=== PATIENT | female | born 1970 | race Caucasian/White ===

== ENCOUNTER 2017-08-15 14:01 | Observation (INO) | payer SELFPAY ==
[~2017-08-15] VITALS: Ht 167.6 cm; Wt 68.0 kg
--- NOTE | 2017-08-15 14:13 | NUR ---
CALLED PT FROM LOBBY PT NOT PRESENT.
--- NOTE | 2017-08-15 14:25 | NUR ---
PT TO ROOM 8 W/STEADY GAIT.
--- NOTE | 2017-08-15 14:26 | NUR ---
PT NOW STATES THAT SHE IS HAVING PAIN IN HER CHEST WELL.
[2017-08-15 15:13] LABS: URINE BILIRUBIN - DIPSTICK NEGATIVE (NEGATIVE); URINE BLOOD DIPSTICK NEGATIVE (NEGATIVE); URINE COLOR YELLOW; URINE GLUCOSE - DIPSTICK NEGATIVE (NEGATIVE); URINE KETONE NEGATIVE (NEGATIVE); URINE LEUK ESTERASE NEGATIVE (NEGATIVE); URINE NITRITE - DIPSTICK NEGATIVE (Negative); URINE PROTEIN - DIPSTICK NEGATIVE (NEG-TRACE); URINE UROBILINOGEN - DIPSTICK 0.2 E.U./dL (0.2)
[2017-08-15 15:16] LABS: URINE CLARITY CLEAR
--- NOTE | 2017-08-15 15:20 | NUR ---
PATIENT REPORTS GOING THRUGH 20 TAMPONS AND PADS PER DAY X 3 MONTHS. PATIENT FEELING WEAK AND TIRED. PATIENT AWARE OF PENDING LAB RESUTLS AND WAIT TIME. WILL CONTINUE TO MONITOR.
[2017-08-15 15:21] LABS: IMMATURE GRANULOCYTES 0.5 % (0.0-1.0); MEAN CELL VOLUME 67.3 fL CALC (80.0-100.0); MEAN CORPUSCULAR HGB 18.7 pG CALC (26.0-32.0); MEAN CORPUSCULAR HGB CONC 27.7 g/L CALC (32.0-36.0); NEUT# 4.46 thou/uL (2.00-7.15); RED BLOOD COUNT 3.27 mill/uL (4.20-5.60); RED CELL DISTRI WIDTH 20.3 % (11.5-15.5)
[2017-08-15 15:24] LABS: HEMOGLOBIN 6.1 g/dl (12.0-16.0)
[2017-08-15 15:26] LABS: ALBUMIN 4.3 g/dL (3.2-5.0); ALKALINE PHOSPHATASE 57 u/l (38-126); ANION GAP 14 (6-22 (CALC)); BILIRUBIN, TOTAL 0.4 mg/dL (0.0-1.4); BUN 13 mg/dL (7-17); BUN/CREATININE RATIO 20 (12-20 (CALC)); CARBON DIOXIDE 26 mmol/l (22-30); CHLORIDE 104 mmol/l (95-108); CREATININE 0.7 mg/dL (0.5-1.0); GFR > 60 ML/MIN (>=60 (CALC)); GFR FOR AFR.AMER. > 60 ML/MIN (>=60 (CALC)); GLUCOSE 91 mg/dL (65-105); SGOT/AST 26 u/l (14-36); SGPT/ALT 35 u/l (9-52); SODIUM 141 mmol/l (137-146); TOTAL PROTEIN 7.2 g/dL (6.3-8.2)
[2017-08-15 15:37] LABS: MYOGLOBIN 33 ng/mL (0 - 62)
--- NOTE | 2017-08-15 15:59 | NUR ---
PT ADVISED OF CBC RESULTS. IV STARTED TO RAC. PT STATES IF TRANFUSION NECESSARUY SHE WILL SIGN CONCENT. CALL LIGHT PROVIDED.
--- NOTE | 2017-08-15 16:43 | NUR ---
PATIENT AWARE OF PLAN OF CARE AND WAIT TIME. CALL HORAN WITHIN REACH. VSS. WILLC CONTINUE TO MONITOR.
--- NOTE | 2017-08-15 17:23 | NUR ---
MD AT BEDSIDE TO DISCUSS RESUTLS.
--- NOTE | 2017-08-15 17:29 | NUR ---
SBAR PRINTED TO FLOOR
--- NOTE | 2017-08-15 18:20 | NUR ---
MEAL TRAY SERVED. PATIENT AWARE OF ENDIGN TRANSFER TO MED SURG.
--- NOTE | 2017-08-15 19:07 | NUR ---
REPORT CALLED TO ISRAEL MENDENHALL.
--- NOTE | 2017-08-15 20:00 | NUR ---
PATIENT TO FLOOR ON MONITOR, VIA STRETCHER WITH RN.
[2017-08-15 20:45] VITALS: BP 121/62
[2017-08-15 21:45] VITALS: BP 132/66
[2017-08-15 22:23] VITALS: BP 112/64
[2017-08-15 23:30] VITALS: BP 160/79
[2017-08-16] VITALS (8 sets, daily range): BP systolic 107–136; BP diastolic 57–80
--- NOTE | 2017-08-16 04:00 | NUR ---
NO APPARENT ACUTE CHANGES NOTED IN PATIENT'S CONDITION.
[2017-08-16 06:10] LABS: HEMATOCRIT 28.6 % (37.0-47.0); HEMOGLOBIN 8.5 g/dl (12.0-16.0); MEAN CORPUSCULAR HGB 21.1 pG CALC (26.0-32.0); MEAN CORPUSCULAR HGB CONC 29.7 g/L CALC (32.0-36.0); RED BLOOD COUNT 4.03 mill/uL (4.20-5.60); RED CELL DISTRI WIDTH 21.5 % (11.5-15.5)
[2017-08-16 06:23] LABS: ANION GAP 13 (6-22 (CALC)); BUN 12 mg/dL (7-17); BUN/CREATININE RATIO 18 (12-20 (CALC)); CALCIUM 8.6 mg/dL (8.4-10.2); CARBON DIOXIDE 25 mmol/l (22-30); CHLORIDE 106 mmol/l (95-108); CREATININE 0.7 mg/dL (0.5-1.0); GFR > 60 ML/MIN (>=60 (CALC)); GFR FOR AFR.AMER. > 60 ML/MIN (>=60 (CALC)); GLUCOSE 80 mg/dL (65-105); POTASSIUM 4.7 mmol/l (3.5-5.1); SODIUM 139 mmol/l (137-146)
--- NOTE | 2017-08-16 07:23 | NUR ---
SHIFT CHANGE REPORT FROM DSUTIN MENDENHALL AWAKE ALERT AND ORIENTED AMBULATING FROM BR AT THIS TIME, DENIES PAIN/DISCOMFORT, IVF INFUSING, TELE MONITOR IN PLACE, CALL HORAN IN REACH.
[2017-08-16 07:34] LABS: HEMATOCRIT 28.6 % (37.0-47.0); HEMOGLOBIN 8.5 g/dl (12.0-16.0)
[2017-08-16] MEDS ORDERED: IRON325 M1 PO (10:38)
--- NOTE | 2017-08-16 13:57 | NUR ---
Discharge instructions given. Patient verbalizes understanding of same. Discharged in stable condition via Wheelchair to Home with significant other. All belongings sent with pt.
== END 2017-08-16 13:40 | disposition home or self-care (01) | DRG 812 ==
LOC: ED 14:01 → ED-I 17:14 → ED 18:32 → MS2 18:33
PROVIDERS: Emergency Medicine; Obstetrics & Gynecology; ADMIT Internal Medicine; ATTEND Internal Medicine
PROC: 30233N1 Transfusion of Nonautologous Red Blood Cells into Peripheral Vein, Percutaneous Approach (ICD-10-PCS; principal; 2017-08-15)
PROC: 30233N1 Transfusion of Nonautologous Red Blood Cells into Peripheral Vein, Percutaneous Approach (ICD-10-PCS; 2017-08-16)
DX: D62 Acute posthemorrhagic anemia (principal); N92.1 Excessive and frequent menstruation with irregular cycle; N83.201 Unspecified ovarian cyst, right side
CPT/HCPCS: G0378; J1756; P9016